=== PATIENT | female | born 1995 | race African-American/Black ===

== ENCOUNTER 2020-06-17 11:39 | Emergency (ER) | payer OTHER ==
--- NOTE | 2020-06-17 12:14 | CT Report ---
PROCEDURE: HEAD WO INDICATIONS: seizure like activity TECHNIQUE: Noncontrast 4.5 mm thick angled axial sections acquired from the foramen magnum to the vertex. For r adiation dose reduction, the following was used: automated exposure control, adjustment of mA and/or kV according to patient size. COMPARISON: None. FINDINGS: Image quality: Excellent. CSF spaces: Basal cisterns are patent. No extra-axial fluid collections. Ventricles are normal in size and shape. Brain: No midline shift. No intracranial masses or hemorrhage. Cook-white matter interface is norm al. Skull and face: Calvarium and visualized facial bones are intact, without suspicious lesions. Sinuses: Visualized sinuses and mastoids are clear. IMPRESSION: No acute intracranial disease process. Reviewed by: Brigida Carmona MD, PhD on 06/17/2020 12:13 PM PDT Approved by: Brigida Carmona MD, PhD on 06/17/2020 12:13 PM PDT Station ID: [id number]
[2020-06-17 12:32] LABS: MUDS CUTOFF CONCENTRATIONS CUTOFF CONC BELOW:
[2020-06-17 12:46] LABS: BILIRUBIN,URINE NEGATIVE (NEGATIVE); GLUCOSE, URINE (UA) NEGATIVE (NEGATIVE); KETONES,URINE (UA) NEGATIVE (NEGATIVE); LEUKOCYTE ESTERASE, URINE TRACE (NEGATIVE); NITRITE,URINE NEGATIVE (NEGATIVE); OCCULT BLOOD,URINE NEGATIVE (NEGATIVE); PH,URINE 6.5 PH (5.0-7.5); PROTEIN,URINE NEGATIVE (NEGATIVE); UROBILINOGEN,URINE 0.2 (NORMAL) E.U./dL (NORMAL)
[2020-06-17 12:52] LABS: BASOPHILS # (AUTO) 0.1 10^3/uL (0.0-0.1); EOSINOPHILS # (AUTO) 0.1 10^3/uL (0.0-0.7); EOSINOPHILS % (AUTO) 2.1 %; HGB - HEMOGLOBIN 13.3 g/dL (12.0-16.0); LYMPHOCYTES # (AUTO) 1.9 10^3/uL (1.5-3.5); LYMPHOCYTES % (AUTO) 37.7 %; MEAN CORPUSCULAR HEMOGLOBIN 26.7 pg (27.0-31.0); MEAN CORPUSCULAR HGB CONC 32.1 g/dL (32.0-36.0); MEAN CORPUSCULAR VOLUME 83.1 fL (81.0-99.0); MEAN PLATELET VOLUME 10.1 fL (7.9-10.8); MONOCYTES # (AUTO) 0.4 10^3/uL (0.0-1.0); MONOCYTES % (AUTO) 7.4 %; NEUTROPHILS # (AUTO) 2.7 10^3/uL (1.5-6.6); NEUTROPHILS % (AUTO) 51.6 %; PLT - PLATELET COUNT 236 10^3/uL (130-450); RED BLOOD COUNT 4.98 10^6/uL (4.20-5.40); RED CELL DISTRIBUTION WIDTH 13.2 % (12.0-15.0); WHITE BLOOD COUNT 5.1 x10^3/uL (4.8-10.8)
[2020-06-17 12:56] LABS: CLARITY,URINE CLEAR (CLEAR)
[2020-06-17 13:00] LABS: INR 1.1 (0.8-1.2); PT - PROTHROMBIN TIME 12.2 secs (9.9-12.6)
[2020-06-17 13:04] LABS: ALBUMIN 4.2 g/dL (3.2-5.5); ALBUMIN/GLOBULIN RATIO 1.2 (1.0-2.2); ALKALINE PHOSPHATASE 72 IU/L (42-121); ALT ALANINE AMINOTRANSFERASE 21 IU/L (10-60); AST ASPARTATE AMINOTRANSFERASE 24 IU/L (10-42); BILIRUBIN,TOTAL 0.6 mg/dL (0.2-1.0); BUN - BLOOD UREA NITROGEN 14 mg/dL (6-20); CALCIUM 9.5 mg/dL (8.5-10.3); CARBON DIOXIDE - CO2 25 mmol/L (21-32); CHLORIDE 104 mmol/L (101-111); CREATININE 0.8 mg/dL (0.4-1.0); GLUCOSE 96 mg/dL (70-100); LIPASE 26 U/L (22-51); SODIUM 138 mmol/L (135-145); TOTAL PROTEIN 7.8 g/dL (6.7-8.2)
[2020-06-17 13:06] LABS: AMPHETAMINE SCREEN,URINE NEGATIVE (NEGATIVE); BENZODIAZEPINES SCREEN, URINE NEGATIVE (NEGATIVE); COCAINE SCREEN URINE NEGATIVE (NEGATIVE); METHADONE SCREEN, URINE NEGATIVE (NEGATIVE); METHAMPHETAMINES SCREEN, URINE NEGATIVE (NEGATIVE); OPIATE SCREEN, URINE NEGATIVE (NEGATIVE); OXYCODONE SCREEN, URINE NEGATIVE (NEGATIVE); TRICYCLIC ANTIDEPRESSANT,URINE NEGATIVE (NEGATIVE)
[2020-06-17 13:07] LABS: PROPOXYPHENE SCREEN, URINE NEGATIVE (NEGATIVE)
[2020-06-17 13:10] LABS: BACTERIA,URINE Rare /HPF (None Seen); RBC,URINE 0-5 /HPF (0-5); SQUAMOUS EPITHELIAL CELL,UR FEW Squamous (<= Few)
[2020-06-17 13:34] LABS: HCG,QUALITATIVE BLOOD NEGATIVE
[2020-06-17] MEDS ORDERED: LORazepam 2 MG/ML VIAL IVP STA (16:12)
--- NOTE | 2020-06-17 16:17 | ED Physician Documentation ---
History of Present Illness - Stated complaint Stated Complaint: SYNCOPE - Chief complaint Chief Complaint: Neuro - History obtained from History obtained from: EMS - Additonal information Additional information: Patient is brought to the emergency department by EMS after having a syncopal episode with altered mental status afterward while at work. The patient apparently had been doing well as far as her coworkers could tell. She got up to go the bathroom and when she came back she sat down at her desk and coworkers noted a few minutes later that she suddenly slumped over onto the desk. She was unconscious for a short period of time after which she seemed to be regaining consciousness, but was slow to respond and minimally verbal. The patient did not have any other identifiable focal deficits, but seemed to be generally weak. EMS was called and patient was ultimately brought to the emergency department. Medics state that the patient has been able to follow commands and is able to respond slowly to stimuli but that she is still not verbalizing much. No known history of she is seizure disorder. The patient apparently was recently seen in clinic for migraines and placed on Imitrex. Patient shakes her head "no" when asked if she is hurting anywhere. She mouths "yes" when asked if she is feeling better. Patient is not able to offer any further information. Medics report that no seizure-like activity was noted and that there was no loss of urine or biting of the tongue that was noted on exam. No other complaints at this time. Review of Systems Unable to obtain: [facility] PD PAST MEDICAL HISTORY - Past Medical History Past Medical History: No - Past Surgical History Past Surgical History: No - Allergies Allergies/Adverse Reactions: Allergies Allergy/AdvReac Type Severity Reaction Status Date / Time No Known Drug Allergies Allergy Verified 06/17/20 11:47 - Social History Does the pt smoke?: No Smoking Status: Never smoker Does the pt drink ETOH?: No Does the pt have substance abuse?: No - Immunizations Immunizations are current?: No PD ED PE NORMAL - Vitals Vital signs reviewed: Yes - General General: No acute distress, Other (Patient is awake and sluggishly responsive when spoken to. She mouths simple responses, but orientation cannot be adequately evaluated. No apparent distress.) - HEENT HEENT: Atraumatic, PERRL, Moist mucous membranes - Neck Neck: Supple, no meningeal sign - Cardiac Cardiac: RRR, No murmur - Respiratory Respiratory: No respiratory distress, Clear bilaterally - Abdomen Abdomen: Soft, Non tender, Non distended - Derm Derm: Normal color, Warm and dry, No rash - Extremities Extremities: No deformity, No edema, No calf tenderness / cord - Neuro Neuro: Other (Awake and made sluggishly responsive to stimuli, but does respond. She makes slow eye contact and mouths simple verbal responses slowly. ) Results - Vitals Vitals: Vital Signs - 24 hr 06/17/20 06/17/20 06/17/20 11:47 12:48 12:50 Temperature 37.2 C Heart Rate 86 131 H 83 Respiratory 16 17 22 Rate Blood Pressure 193/89 H 113/102 H 131/87 H O2 Saturation 100 95 100 06/17/20 06/17/20 06/17/20 14:14 14:30 15:44 Temperature Heart Rate 90 95 95 Respiratory 10 L 16 18 Rate Blood Pressure 124/79 139/89 H 121/79 O2 Saturation 99 100 100 06/17/20 06/17/20 16:00 17:39 Temperature Heart Rate 90 88 Respiratory 14 14 Rate Blood Pressure 117/79 117/79 O2 Saturation 100 100 Oxygen O2 Source Room air - EKG (time done) 1151 Rate: Rate (enter#) (78) Rhythm: NSR [place]: Normal Intervals: Normal MS QRS: Normal Ischemia: Normal ST segments. No: T wave inversion Compare to prior EKG: Old EKG unavailable - Labs Labs: Laboratory Tests 06/17/20 06/17/20 06/17/20 12:25 12:41 12:41 WBC 5.1 RBC 4.98 Hgb 13.3 Hct 41.4 MCV 83.1 MCH 26.7 L MCHC 32.1 RDW 13.2 Plt Count 236 MPV 10.1 Neut # (Auto) 2.7 Lymph # (Auto) 1.9 Bradley # (Auto) 0.4 Eos # (Auto) 0.1 Baso # (Auto) 0.1 Absolute Nucleated RBC 0.00 Nucleated RBC % 0.0 PT 12.2 INR 1.1 Sodium Potassium Chloride Carbon Dioxide Anion Gap BUN Creatinine Estimated GFR (MDRD) Glucose Calcium Total Bilirubin AST ALT Alkaline Phosphatase Total Protein Albumin Globulin Albumin/Globulin Ratio Lipase Prolactin Serum HCG, Qual Urine Color YELLOW Urine Clarity CLEAR Urine pH 6.5 Ur Specific Angie <=1.005 Urine Protein NEGATIVE Urine Glucose (UA) NEGATIVE Urine Ketones NEGATIVE Urine Occult Blood NEGATIVE Urine Nitrite NEGATIVE Urine Bilirubin NEGATIVE Urine Urobilinogen 0.2 (NORMAL) Ur Leukocyte Esterase TRACE H Urine RBC 0-5 Urine WBC 4-5 Ur Squamous Epith Cells FEW Squamous Urine Bacteria Rare Ur Microscopic Review INDICATED Urine Culture Comments INDICATED Urine Opiates Screen NEGATIVE Ur Oxycodone Screen NEGATIVE Urine Methadone Screen NEGATIVE Ur Propoxyphene Screen NEGATIVE Ur Barbiturates Screen NEGATIVE Ur Tricyclics Screen NEGATIVE Ur Phencyclidine Scrn NEGATIVE Ur Amphetamine Screen NEGATIVE U Methamphetamines Scrn NEGATIVE U Benzodiazepines Scrn NEGATIVE Urine Cocaine Screen NEGATIVE U Cannabinoids Screen NEGATIVE Ethyl Alcohol 06/17/20 06/17/20 06/17/20 12:41 12:41 12:41 WBC RBC Hgb Hct MCV MCH MCHC RDW Plt Count MPV Neut # (Auto) Lymph # (Auto) Bradley # (Auto) Eos # (Auto) Baso # (Auto) Absolute Nucleated RBC Nucleated RBC % PT INR Sodium 138 Potassium 4.5 Chloride 104 Carbon Dioxide 25 Anion Gap 9.0 BUN 14 Creatinine 0.8 Estimated GFR (MDRD) 104 Glucose 96 Calcium 9.5 Total Bilirubin 0.6 AST 24 ALT 21 Alkaline Phosphatase 72 Total Protein 7.8 Albumin 4.2 Globulin 3.6 Albumin/Globulin Ratio 1.2 Lipase 26 Prolactin 6.62 Serum HCG, Qual NEGATIVE Urine Color Urine Clarity Urine pH Ur Specific Angie Urine Protein Urine Glucose (UA) Urine Ketones Urine Occult Blood Urine Nitrite Urine Bilirubin Urine Urobilinogen Ur Leukocyte Esterase Urine RBC Urine WBC Ur Squamous Epith Cells Urine Bacteria Ur Microscopic Review Urine Culture Comments Urine Opiates Screen Ur Oxycodone Screen Urine Methadone Screen Ur Propoxyphene Screen Ur Barbiturates Screen Ur Tricyclics Screen Ur Phencyclidine Scrn Ur Amphetamine Screen U Methamphetamines Scrn U Benzodiazepines Scrn Urine Cocaine Screen U Cannabinoids Screen Ethyl Alcohol < 5.0 - Rads (name of study) CT head Radiology: Final report received, EMP read indepedently, See rad report (neg) MR brain Radiology: Final report received, EMP read indepedently, See rad report (neg) PD MEDICAL DECISION MAKING - ED course Complexity details: reviewed old records, reviewed results, re-evaluated patient, considered differential, d/w patient ED course: The patient was worked up with labs, EKG, head CT, and ultimately, MRI of the brain. She was found to be doing much better on reevaluation, and was able to converse coherently. Her work-up was negative, including prolactin level, CT and MRI. [place], and he stated he could see her tomorrow in clinic for reevaluation. He has stated that the patient can just call the office first thing in the morning. I have d/w pt that I am not sure what has caused her episode today. We have not found an emergent cause, despite extensive work-up. There is no evidence of a stroke or seizure, or of sepsis or intoxication. I have advised the pt to call the clinic in the morning, as above, to be re-evaluated, and to discuss further evaluation. Departure - Departure Disposition: 01 Home, Self Care Clinical Impression: Altered mental status Qualifiers: Altered mental status type: unspecified Qualified Code(s): R41.82 - Altered mental status, unspecified Syncope Qualifiers: Syncope type: unspecified Qualified Code(s): R55 - Syncope and collapse Instructions: ED Altered Loc, ED Fainting Unkn Cause Comments: Extensive work-up today has not revealed a specific cause of your symptoms. There is no evidence at this time of a seizure or a stroke. Your case [place] Dr. [place], who would like to see you in for reevaluation in the clinic tomorrow. Please call first thing in the morning to make an appointment to be seen. Discharge Date/Time: 06/17/20 17:41
[2020-06-17 16:46] VITALS: BP 117/79
--- NOTE | 2020-06-17 16:57 | MRI Report ---
PROCEDURE: Brain W/O INDICATIONS: seizure/stroke-like sx TECHNIQUE: Noncontrast axial T1 spin echo, axial T2 fast spin echo, sagittal and axial FLAIR, coronal T2 fast sp in echo, axial gradient echo, axial diffusion and ADC through the brain. COMPARISON: CT head 06/17/2020. FINDINGS: Image quality: Limited by motion artifact. CSF Spaces: Basal cisterns are patent. No extra-axial fluid collections. Ventricles are normal in size and shape. Brain: No intracranial masses or hemorrhage. Cook/white matter interface is normal. Brainstem appe ars normal. Diffusion-weighted images demonstrate no acute ischemic insult. No chronic ischemic ins ults. No abnormal GRE weighted artifact identified in the brain parenchyma. Normal intravascular flow voids are present. Hippocampi have normal and symmetric volume. No abnormal signal identified withi n the hippocampi. Skull and face: Calvarium has normal marrow signal. Orbits appear normal. Sinuses: Sinuses and mastoids are clear. IMPRESSION: 1. No intracranial disease process identified within limitations related to motion artifact. 2. No areas of acute or chronic infarction. 3. No abnormal intracranial mass or mass effect. Reviewed by: Brigida Carmona MD, PhD on 06/17/2020 4:56 PM PDT Approved by: Brigida Carmona MD, PhD on 06/17/2020 4:56 PM PDT Station ID: [id number]
== END 2020-06-17 17:41 | disposition home or self-care (01) ==
LOC: ED 11:39
DX: R55 Syncope and collapse (principal); R41.82 Altered mental status, unspecified; R53.1 Weakness
CPT/HCPCS: 36415; 70450; 70551; 80053; 80306; 80320; 81001; 83690; 84146; 84703; 85025; 85610; 87086; 93005; 96374; 99284; 99285; J2060; 81003